=== PATIENT | female | born 1950 | race Caucasian/White ===

== ENCOUNTER 2016-11-21 05:24 | Day surgery (SDC) | payer MEDICARE, OTHER ==
--- NOTE | 2016-11-20 13:12 | PREOPHP ---
DATE OF ADMISSION: 11/21/2016 HISTORY OF PRESENT ILLNESS: This 66-year-old patient is admitted for elective cataract surgery of t he right eye. The patient has had progressive deterioration of vision in both eyes over a period of time. The patient also has a 20+ year history of klu-zcwakan-eqvvvwanl diabetes mellitus with seco ndary proliferative diabetic retinopathy and diabetic macular edema. These have been previously jazlyn ated with retinal laser photocoagulation and intravitreal Avastin injections. The patient is now be ing admitted for cataract surgery of the right eye. MEDICATIONS: Include: 1. Metformin. 2. Glyxambi. ALLERGIES: THERE ARE NO KNOWN ALLERGIES. PHYSICAL EXAMINATION: Visual acuity with best correction is 20/70 in the right eye and 20/50 in the left eye. Slit lamp examination reveals nuclear sclerotic and posterior subcapsular cataract william es, greater in the right eye than in the left eye. Applanation tonometry is 16 mmHg in both eyes. Examination of the retina reveals the presence of macular drusen in both eyes and peripheral retinal photocoagulation scars. DIAGNOSIS: Cataract, right eye. PLAN: Cataract extraction with lens implant, right eye. The risks and alternatives to the surgery have been discussed with the patient, as well as the potential limitations of visual improvement due to the prior history of diabetic macular edema. The patient understands this and agrees to proceed with surgery. Dictated By: KATHLEEN RODRÍGUEZ/WENDY Conf#: [id number] DID#: [id number]
[~2016-11-21] VITALS: Ht 154.9 cm; Wt 57.5 kg
[2016-11-21] VITALS (7 sets, daily range): BP systolic 117–142; BP diastolic 51–77; PULSE 55–66; RESP 14–23; Ht 154.9 cm; Wt 57.5 kg
[2016-11-21] MEDS ORDERED: TROPICAMIDE 1% 2 ML OPH OPER SCH (06:00)
[2016-11-21] MEDS ORDERED: CIPROFLOXACIN 0.3% 2.5 ML OPH OPER SCH (06:00)
[2016-11-21] MEDS ORDERED: DICLOFENAC 0.1% 2.5 ML OPH OPER SCH (06:00)
[2016-11-21] MEDS ORDERED: CYCLOPENTOLATE/PHENYLEPH 2 ML OPH OPER SCH (06:00)
[2016-11-21] MEDS ORDERED: DEXAMETHASONE 4 MG/ML 1 ML INJ ONE (06:21)
[2016-11-21] MEDS ORDERED: GENTAMICIN 80 MG INJ ONE (06:21)
[2016-11-21] MEDS ORDERED: LIDOCAINE 4% (MPF) 5 ML INJ ONE (06:21)
[2016-11-21] MEDS ORDERED: CARBACHOL 0.01% 1.5 ML OPH INJ ONE (06:21)
[2016-11-21] MEDS ORDERED: CEFAZOLIN 1 GM INJ ONE (06:21)
[2016-11-21] MEDS ORDERED: HYALURONATE/CHONDROITIN 1ML OPH INJ ONE (06:22)
[2016-11-21] MEDS ORDERED: EPINEPHrine 1 MG INJ ONE (06:22)
[2016-11-21] MEDS ORDERED: PRAV10TA43 PO (07:08)
[2016-11-21] MEDS ORDERED: METF1000 PO (07:08)
[2016-11-21] MEDS ORDERED: GLIM1TAB2 PO (07:08)
[2016-11-21] MEDS ORDERED: VITAMIN B PO (07:08)
[2016-11-21] MEDS ORDERED: HYALURONATE/CHONDROITIN 1ML OPH INJ IO ONE (07:09)
[2016-11-21] MEDS ORDERED: CEFAZOLIN 1 GM INJ INJ ONE (07:09)
[2016-11-21] MEDS ORDERED: CARBACHOL 0.01% 1.5 ML OPH INJ IO ONE (07:09)
[2016-11-21] MEDS ORDERED: DEXAMETHASONE 4 MG/ML 1 ML INJ INJ ONE (07:09)
[2016-11-21] MEDS ORDERED: PROPOFOL 20 ML ONE (07:28)
--- NOTE | 2016-11-21 11:16 | OPR ---
DATE OF OPERATION: 11/21/2016 PREOPERATIVE DIAGNOSIS: Cataract, right eye. POSTOPERATIVE DIAGNOSIS: Cataract, right eye. OPERATION PERFORMED: Cataract extraction with lens implant, right eye. SURGEON: Kathleen Lock M.D. ANESTHESIA: Dr. Bunch ANESTHESIA: Local standby. OPERATION: Phacoemulsification with posterior chamber intraocular lens implant, right eye. DESCRIPTION OF OPERATION: The patient was brought to the operating room and placed on the table with an IV in place and the patient attached to an corporate communications manager. Oxygen was given via face mask. After some intravenous sedation was administered, local anesthesia was given using Xylocaine 2% with epinephrine, mixed with Marcaine 0.5%. This was given in a lid block and retrobulbar injection. The patient was then prepped and draped in the usual sterile manner. A wire lid speculum was inserted between the lids of the right eye. A Superblade was used to enter t he anterior chamber at the corneoscleral limbus at the 10:30 o'clock position. A separate incision w as made using a 3.0-mm keratome which entered the corneoscleral junction at the 12 o'clock position. Through this 3-mm opening, an irrigating cystitome was introduced into the anterior chamber. The ch bassem was filled with Viscoat and an anterior capsulotomy was performed. Balanced salt solution was then used for hydrodissection of the lens. A phacoemulsification handpiece was then brought into th e field and introduced into the anterior chamber. The lens nucleus was emulsified using a deep groov e and cracking the nucleus into quadrants. Following this, each quadrant was aspirated and emulsifie d at the pupillary margin. After this was completed, the irrigation/aspiration handpiece was brought to the field, introduced i nto the posterior chamber, and the lens cortical material was removed. When this was completed, shruthi tional Viscoat was injected into the anterior and posterior chambers. The 3-mm opening had its internal lips enlarged, and then the posterior chamber intraocular lens emre suring 22.0 diopters ([email or web address] [id number]) was then injected into the posterior chamb er using the lens injector system. After the leading haptic was introduced into the capsular bag and the lens optic was present in the center of the eye, the injector was removed and the trailing hapt ic was grasped with non-toothed forceps and introduced into the capsular fold superiorly. A Sinskey hook was then used to rotate the intraocular lens so that the lips were oriented in the horizontal m eridian. One 10-0 nylon suture was placed across the wound. Prior to tying, the irrigation/aspiration handpiece was reintroduced into the anterior chamber to re move the Viscoat. Miochol was instilled to constrict the pupil, and then the 10-0 nylon suture was t ied. The ends were cut short and then the knot was buried. Then, 0.5 mL of dexamethasone and 0.5 mL of Ancef were injected into the sub-Tenon space in the infe rior fornix. Ciloxan drops were then placed on the surface of the eye. The speculum was removed and a patch was applied. The patient then left the operating room in satisfactory condition. Dictated By: KATHLEEN RODRÍGUEZ/WENDY Conf#: [id number] DID#: [id number]
[2016-11-21] MEDS ORDERED: DIATR MEGLU/DIATRIZOATE SODIUM 120 ML BTL ONE (14:56)
== END 2016-11-21 09:12 | disposition home or self-care (01) ==
LOC: SDS 05:24
PROVIDERS: ATTEND Ophthalmology
DX: H25.11 Age-related nuclear cataract, right eye (principal); E11.9 Type 2 diabetes mellitus without complications
CPT/HCPCS: 66984; 82962; J0171; J0690; J1100; J1580; V2632